=== PATIENT | female | born 1985 | race Caucasian/White ===

== ENCOUNTER 2024-10-29 14:30 | Emergency (ER) | payer OTHER ==
[2024-10-29] MEDS ORDERED: HYDROcodone/Acetaminophen 5/325 mg Tablet ONE (17:26)
[2024-10-29] MEDS ORDERED: Bacitracin 1 PK ONE (17:31)
== END 2024-10-29 17:42 | disposition home or self-care (01) ==
LOC: CSHERS 14:30
DX: S90.212A Contusion of left great toe with damage to nail, initial encounter (principal); E03.9 Hypothyroidism, unspecified; F17.210 Nicotine dependence, cigarettes, uncomplicated; F17.290 Nicotine dependence, other tobacco product, uncomplicated; X58.XXXA Exposure to other specified factors, initial encounter
CPT/HCPCS: 99283